=== PATIENT | male | born 1955 | race Caucasian/White ===

== ENCOUNTER 2017-05-17 08:59 | Day surgery (SDC) | payer OTHER ==
[~2017-05-17 08:59] MED LIST: LISI-586 PO
[2017-05-17] MEDS ORDERED: CHLORHEXIDINE GLUCONATE 2 % 1 PACK (2 CLOTHS) TOPICAL PRN (10:00)
[2017-05-17] MEDS ORDERED: SODIUM CHLORID 0.9% 500 ML IV PRN (10:00)
[2017-05-17] MEDS ORDERED: POVIDONE IODINE 5% (ANTISEPSIS KIT) 4 APPLICATIONS EACH NARE PRN (10:00)
[2017-05-17] MEDS ORDERED: METOPROLOL TARTRATE 25 MG TAB PO PRN (10:00)
[2017-05-17] MEDS ORDERED: LACTATED RINGER'S 1000 ML IV PRN (10:00)
[2017-05-17] MEDS ORDERED: INSULIN HUMAN REGULAR 1,000 UNITS/10 ML VIAL SQ PRN (10:00)
[2017-05-17] MEDS ORDERED: ASPI325T33 PO (11:20)
[2017-05-17] MEDS ORDERED: MISCELLANEOUS NURSING INFORMATION XX PRN (11:30)
--- NOTE | 2017-05-17 14:26 | ECHRPT ---
Indication: AI CONCLUSIONS BP: / HR: Rhythm: MEASUREMENTS (Male / Female) Normal Values Technical Quality: DOPPLER AI Peak Velocity 561.3 cm/s AI Pressure Half Time 394.0 ms AI Peak Gradient 126.0 mmHg Medications Complications Proc. Components FINDINGS LEFT VENTRICLE Normal left ventricular size and wall thickness. The left ventricular systolic function is normal wi th an estimated ejection fraction in the range of 60-65%. Left ventricular diastolic function parameters a re normal. RIGHT VENTRICLE Normal right ventricular size and systolic function. LEFT ATRIUM The left atrial size is normal. RIGHT ATRIUM The right atrial size is normal. ATRIAL APPENDAGES Normal left atrial appendage size with no evidence of thrombus formation. ATRIAL SEPTUM Normal atrial septal thickness without atrial level shunting by limited color doppler interrogation. AORTA The aortic root and proximal ascending aorta are normal in size on limited imaging. MITRAL VALVE Structurally normal mitral valve. Mild mitral valve regurgitation. No mitral valve stenosis. AORTIC VALVE Trileaflet aortic valve. Moderate aortic valve regurgitation. Eccentric aortic regurgitation jet directed at the mitral valve. No aortic valve stenosis. Prolapse of the right coronary cusp. Pressure half-time is measured at approximately 400 ms averaging over several measurements. TRICUSPID VALVE Structurally normal tricuspid valve. There is trace tricuspid valve regurgitation. Normal estimated pulmonary pressures. No tricuspid valve stenosis. VESSELS The inferior vena cava is normal in size. PULMONARY VALVE No pulmonary valve regurgitation or stenosis. PERICADIUM No pericardial effusion. Leonel Macedo MD, FACC (Electronically Signed) Final Date:17 May 2017 14:25
--- NOTE | 2017-05-17 15:56 | EKG ---
Date Performed: 05/17/2017 Time Performed: 09:42:44 PTAGE: 62 years EKG: Sinus bradycardia with sinus arrhythmia with 1st degree A-V block. Prolonged QT interval Ab normal ECG NO PREVIOUS TRACING DOCTOR: Massimo Vogel Interpretating Date/Time 05/17/2017 15:55:00
== END 2017-05-17 12:20 | disposition home or self-care (01) ==
LOC: HDOC 08:59 → HDIC 09:00 → HDOC 12:20
PROVIDERS: ATTEND Internal Medicine
DX: I33.0 Acute and subacute infective endocarditis (principal); I35.1 Nonrheumatic aortic (valve) insufficiency
CPT/HCPCS: 93005; 93312; 93320; 93325